=== PATIENT | male | born 1930 | race Caucasian/White ===

== ENCOUNTER → 2016-11-23 | Outpatient (CLI) | payer MEDICARE | END | disposition home or self-care (01) | LOC: CFH 10:46 | PROVIDERS: ATTEND Nurse Practitioner Family | DX: I08.3 Combined rheumatic disorders of mitral, aortic and tricuspid valves (principal); I10 Essential (primary) hypertension; Z95.0 Presence of cardiac pacemaker; Z95.1 Presence of aortocoronary bypass graft | CPT/HCPCS: 93306 ==

== ENCOUNTER → 2017-06-13 | Outpatient (CLI) | payer MEDICARE | END | disposition home or self-care (01) | LOC: CFH 11:18 | PROVIDERS: ATTEND Internal Medicine Cardiovascular Disease | DX: Z95.0 Presence of cardiac pacemaker (principal); I51.7 Cardiomegaly | CPT/HCPCS: 71046 ==

== ENCOUNTER 2018-12-11 10:38 | Outpatient (CLI) | payer MEDICARE ==
[~2018-12-11 10:38] MED LIST: TORS20TA2 PO
== END 2018-12-11 23:59 | disposition home or self-care (01) ==
LOC: CFH 10:38
PROVIDERS: ATTEND Internal Medicine Cardiovascular Disease
DX: I08.8 Other rheumatic multiple valve diseases (principal); I10 Essential (primary) hypertension; I48.91 Unspecified atrial fibrillation
CPT/HCPCS: 93306

== ENCOUNTER → 2019-04-22 | Outpatient (CLI) | payer MEDICARE | END | disposition home or self-care (01) | LOC: RAD 13:03 | PROVIDERS: ATTEND Internal Medicine Cardiovascular Disease | DX: J90 Pleural effusion, not elsewhere classified (principal); I51.7 Cardiomegaly; J98.11 Atelectasis; Z95.0 Presence of cardiac pacemaker | CPT/HCPCS: 71045; 78582; A9540; A9558 ==

== ENCOUNTER → 2019-04-27 | Outpatient (CLI) | payer MEDICARE ==
[~2019-04-27] MED LIST changes: +LIDOCAINE 1%, 10ML ONE
== END | disposition home or self-care (01) ==
LOC: RAD 12:32
PROVIDERS: ATTEND Internal Medicine Cardiovascular Disease
DX: J90 Pleural effusion, not elsewhere classified (principal); R06.00 Dyspnea, unspecified
CPT/HCPCS: 32555; 83615; 84157; 87015; 87070; 87116; 87205; 87206; 88112; 88305; 89051

== ENCOUNTER 2019-05-01 16:14 | Observation (INO) | payer MEDICARE ==
[~2019-05-01] VITALS: Ht 170.2 cm; Wt 74.0 kg
[~2019-05-01 16:14] MED LIST changes: -LIDOCAINE 1%, 10ML ONE
[2019-05-01] MEDS ORDERED: NYSTATIN/TRIAMCINOLONE OINT 15GM TP SCH (17:05)
[2019-05-01 17:32] LABS: BASOPHILS # (AUTO) 0.05 x10^3/uL (0-0.1); BASOPHILS % (AUTO) 1 % (0-1); EOSINOPHILS # (AUTO) 0.03 x10^3/uL (0-0.4); EOSINOPHILS % (AUTO) 1 % (1-7); LYMPHOCYTES # (AUTO) 0.99 x10^3/uL (1-3.4); LYMPHOCYTES % (AUTO) 16 % (22-44); MD NO; MEAN CORPUSCULAR HEMOGLOBIN 31.8 pg (27.5-34.5); MEAN CORPUSCULAR HGB CONC 32.1 g/dL (33.2-36.2); MONOCYTES # (AUTO) 0.37 x10^3/uL (0.2-0.8); MONOCYTES % (AUTO) 6 % (2-9); NEUTROPHILS # (AUTO) 4.78 x10^3/uL (1.8-6.8); NEUTROPHILS % (AUTO) 77 % (42-75); PLATELET COUNT 177 x10^3/uL (130-400); RED CELL DISTRIBUTION WIDTH 15.9 % (9.4-14.8)
[2019-05-01 17:45] LABS: ALBUMIN 3.4 g/dL (3.4-5.0); ANION GAP 7 mmol/L (5-15); CALCIUM 10.1 mg/dL (8.5-10.1); CHLORIDE 107 mmol/L (98-107)
[2019-05-01 17:51] LABS: CREATININE 1.64 mg/dL (0.7-1.3); TROPONIN I < 0.015 ng/mL (0.000-0.045)
[2019-05-01] MEDS ORDERED: ONDANSETRON ODT 4 MG PO PRN (18:00)
[2019-05-01] MEDS ORDERED: BISACODYL 10 MG SUPP PR PRN (18:00)
[2019-05-01] MEDS ORDERED: ACETAMINOPHEN 325 MG TABLET PO PRN (18:00)
[2019-05-01] MEDS ORDERED: POLYETHYLENE GLYCOL 17 GM PACKET PO PRN (18:00)
[2019-05-01] MEDS ORDERED: APIX5TAB PO (18:58)
[2019-05-01] MEDS ORDERED: TRAN4TAB23 PO (18:58)
[2019-05-01] MEDS ORDERED: ATEN25TA PO (18:58)
[2019-05-01] MEDS ORDERED: CALC1CAP8 PO (18:58)
[2019-05-01] MEDS ORDERED: TAMS-11 PO (18:58)
[2019-05-01] MEDS ORDERED: TURM500C4 PO (18:58)
[2019-05-01] MEDS ORDERED: ALEN70TA6 PO (18:58)
[2019-05-01] MEDS ORDERED: OMEP10CA5 PO (18:58)
[2019-05-01] MEDS ORDERED: FUROSEMIDE 20 MG/2 ML ONE (19:31)
[2019-05-01] MEDS: FUROSEMIDE 20 MG/2 ML IV SCH (19:46)
[2019-05-01] MEDS: SODIUM CHLORIDE FLUSH 10ML SYR IVF SCH (19:47)
[2019-05-01] MEDS: NYSTATIN/TRIAMCINOLONE CRM 15GM TP SCH (22:06)
[2019-05-01 22:23] VITALS: BP 109/71
[2019-05-02 01:58] VITALS: BP 99/63
[2019-05-02 05:11] LABS: BASOPHILS # (AUTO) 0.04 x10^3/uL (0-0.1); BASOPHILS % (AUTO) 1 % (0-1); EOSINOPHILS # (AUTO) 0.06 x10^3/uL (0-0.4); EOSINOPHILS % (AUTO) 1 % (1-7); LYMPHOCYTES # (AUTO) 1.44 x10^3/uL (1-3.4); LYMPHOCYTES % (AUTO) 21 % (22-44); MD NO; MEAN CORPUSCULAR HEMOGLOBIN 32.1 pg (27.5-34.5); MEAN CORPUSCULAR HGB CONC 32.5 g/dL (33.2-36.2); MEAN CORPUSCULAR VOLUME 98.6 fL (81-97); MEAN PLATELET VOLUME 9.6 fL (7.4-10.4); MONOCYTES # (AUTO) 0.48 x10^3/uL (0.2-0.8); MONOCYTES % (AUTO) 7 % (2-9); NEUTROPHILS # (AUTO) 4.82 x10^3/uL (1.8-6.8); NEUTROPHILS % (AUTO) 70 % (42-75); PLATELET COUNT 182 x10^3/uL (130-400); RED BLOOD COUNT 4.87 x10^6/uL (4.38-5.82); RED CELL DISTRIBUTION WIDTH 15.5 % (9.4-14.8)
[2019-05-02 05:23] LABS: ANION GAP 9 mmol/L (5-15); CALCIUM 9.9 mg/dL (8.5-10.1); CHLORIDE 107 mmol/L (98-107)
[2019-05-02 05:25] LABS: CREATININE 1.55 mg/dL (0.7-1.3)
[2019-05-02 07:05] VITALS: BP 119/78
[2019-05-02] MEDS ORDERED: ATENOLOL 50 MG TABLET PO SCH (09:00)
[2019-05-02] MEDS: SENNA/DOCUSATE TABLET PO SCH (09:00)
[2019-05-02] MEDS: FUROSEMIDE 20 MG/2 ML IV SCH ×2 (09:10→17:04)
[2019-05-02] MEDS: TAMSULOSIN 0.4 MG CAP.ER.24H PO SCH (09:14)
[2019-05-02] MEDS: SODIUM CHLORIDE FLUSH 10ML SYR IVF SCH ×2 (09:15→21:00)
[2019-05-02] MEDS: NYSTATIN/TRIAMCINOLONE CRM 15GM TP SCH ×2 (09:15→21:28)
[2019-05-02] MEDS ORDERED: FURO20TA3 PO (10:08)
[2019-05-02] MEDS ORDERED: ATOR40TA78 PO (10:08)
[2019-05-02] MEDS ORDERED: OMNIPAQUE 350 MG/ML, 100ML BOTTLE ONE (11:01)
[2019-05-02 12:38] VITALS: BP 114/73
[2019-05-02 21:22] VITALS: BP 115/73
[2019-05-02] MEDS: OMEPRAZOLE 10 MG CAPSULE.DR PO SCH (21:28)
[2019-05-02] MEDS: ATORVASTATIN 40 MG TABLET PO SCH (21:28)
[2019-05-03 01:41] VITALS: BP 99/65
[2019-05-03 05:17] LABS: ALBUMIN 3.2 g/dL (3.4-5.0); ANION GAP 8 mmol/L (5-15); CHLORIDE 106 mmol/L (98-107)
[2019-05-03 05:22] LABS: ALANINE AMINOTRANSFERASE 18 U/L (12-78); ALKALINE PHOSPHATASE 60 U/L (45-117); BILIRUBIN,TOTAL 1.3 mg/dL (0.2-1.0); CALCIUM 9.9 mg/dL (8.5-10.1); CREATININE 1.57 mg/dL (0.7-1.3); TOTAL PROTEIN 6.7 g/dL (6.4-8.2)
[2019-05-03 06:45] VITALS: BP 118/72
[2019-05-03] MEDS: SENNA/DOCUSATE TABLET PO SCH (07:35)
[2019-05-03] MEDS: TAMSULOSIN 0.4 MG CAP.ER.24H PO SCH (07:48)
[2019-05-03] MEDS: NYSTATIN/TRIAMCINOLONE CRM 15GM TP SCH (07:48)
[2019-05-03] MEDS: FUROSEMIDE 20 MG/2 ML IV SCH (07:49)
[2019-05-03] MEDS: SODIUM CHLORIDE FLUSH 10ML SYR IVF SCH ×2 (07:49→20:34)
[2019-05-03] MEDS ORDERED: SODIUM CHLORIDE 0.9% 250 ML IV SCH (08:30)
[2019-05-03] MEDS ORDERED: ATENOLOL 50 MG TABLET PO SCH (09:00)
[2019-05-03] MEDS ORDERED: ACETAMINOPHEN 325 MG TABLET PO PRN (10:00)
[2019-05-03] MEDS ORDERED: ALBUTEROL SULFATE 2.5 MG/3 ML NPPB PRN (10:30)
[2019-05-03 10:33] LABS: TROPONIN I 0.019 ng/mL (0.000-0.045)
[2019-05-03 12:46] VITALS: BP 96/55
[2019-05-03] MEDS: LACTOBACILLUS CHEW TABLET PO SCH ×2 (16:54→20:34)
[2019-05-03] MEDS: CARVEDILOL 6.25 MG TABLET PO SCH (16:56)
[2019-05-03 20:32] VITALS: BP 100/65
[2019-05-03] MEDS: OMEPRAZOLE 10 MG CAPSULE.DR PO SCH (20:34)
[2019-05-03] MEDS: ATORVASTATIN 40 MG TABLET PO SCH (20:34)
[2019-05-04 00:37] VITALS: BP 105/70
[2019-05-04 05:24] LABS: ANION GAP 7 mmol/L (5-15); CALCIUM 9.6 mg/dL (8.5-10.1); CHLORIDE 108 mmol/L (98-107); CREATININE 1.37 mg/dL (0.7-1.3)
[2019-05-04 05:47] VITALS: BP 108/69
[2019-05-04] MEDS: CARVEDILOL 6.25 MG TABLET PO SCH ×2 (05:49→16:21)
[2019-05-04 06:59] VITALS: BP 115/75
[2019-05-04] MEDS: SENNA/DOCUSATE TABLET PO SCH (08:09)
[2019-05-04] MEDS: TAMSULOSIN 0.4 MG CAP.ER.24H PO SCH (08:09)
[2019-05-04] MEDS: SODIUM CHLORIDE FLUSH 10ML SYR IVF SCH (08:09)
[2019-05-04] MEDS: LACTOBACILLUS CHEW TABLET PO SCH ×2 (08:09→16:00)
[2019-05-04] MEDS ORDERED: FUROSEMIDE 20 MG TABLET PO SCH (09:00)
[2019-05-04 12:40] VITALS: BP 111/71
[2019-05-04] MEDS ORDERED: TRAN1TAB PO (16:43)
[2019-05-04] MEDS ORDERED: ACID1TAB7 PO (16:43)
[2019-05-04] MEDS ORDERED: RISP0.5T24 PO (16:43)
[2019-05-04] MEDS ORDERED: APIX5TAB PO (16:43)
[2019-05-04] MEDS ORDERED: SENN-193 PO (16:43)
[2019-05-04] MEDS ORDERED: CARV6.2512 PO (16:43)
[2019-05-04] MEDS ORDERED: RISPERIDONE 0.5 MG TABLET PO SCH (18:00)
== END 2019-05-04 17:44 ==
LOC: ED 17:15 → EDIP 17:16 → INTOOBSV 17:16 → ED 17:34 → 5SO 20:29
PROVIDERS: ADMIT Hospitalist; ATTEND Internal Medicine
DX: S06.360A Traumatic hemorrhage of cerebrum, unspecified, without loss of consciousness, initial encounter (principal); S60.811A Abrasion of right wrist, initial encounter; S60.812A Abrasion of left wrist, initial encounter; J96.00 Acute respiratory failure, unspecified whether with hypoxia or hypercapnia; D68.69 Other thrombophilia; I48.20 Chronic atrial fibrillation, unspecified; N17.9 Acute kidney failure, unspecified; I13.0 Hypertensive heart and chronic kidney disease with heart failure and stage 1 through stage 4 chronic kidney disease, or unspecified chronic kidney disease; E78.5 Hyperlipidemia, unspecified; I25.10 Atherosclerotic heart disease of native coronary artery without angina pectoris; R23.3 Spontaneous ecchymoses; D75.89 Other specified diseases of blood and blood-forming organs; N18.3 Chronic kidney disease, stage 3 (moderate); F10.10 Alcohol abuse, uncomplicated; K21.9 Gastro-esophageal reflux disease without esophagitis; F03.90 Unspecified dementia, unspecified severity, without behavioral disturbance, psychotic disturbance, mood disturbance, and anxiety; R33.9 Retention of urine, unspecified; Z95.0 Presence of cardiac pacemaker; Z95.1 Presence of aortocoronary bypass graft; W01.0XXA Fall on same level from slipping, tripping and stumbling without subsequent striking against object, initial encounter; Y93.01 Activity, walking, marching and hiking; Y92.89 Other specified places as the place of occurrence of the external cause; Z79.02 Long term (current) use of antithrombotics/antiplatelets; Z79.01 Long term (current) use of anticoagulants
CPT/HCPCS: 36415; 36600; 70450; 70496; 70498; 71045; 72125; 73110; 80048; 80053; 82040; 82607; 82803; 83880; 84484; 85025; 93005; 93306; 96374; 96376; 97162; 97166; 99291; G0378; J1940; Q9967